=== PATIENT | male | born 1990 | race African-American/Black ===

== ENCOUNTER 2017-01-25 18:50 | Observation (INO) | payer OTHER ==
--- NOTE | 2017-01-25 19:53 | PDOC ---
History of Present Illness - General Chief Complaint: Pain Stated Complaint: PAIN Time Seen by Provider: 01/25/17 19:26 - History of Present Illness Initial Comments: 01/25/17 19:48 26 yo M with h/o nephrolithiasis who presents with R testicular pain. Pt. reports R sided stable, sharp, shooting, testicular pain for the past 2-3 weeks. states that it feels that someone is "flicking" his testicles. Has not noticed any testicular swelling, inguinal bulging w/ cough or sneeze, or skin changes. Denies aggrevators, or alleviators. Denies abdominal or flank pain, dysuria, urethral discharge, hematuria N/V, fevers/chills. Denies h/o STI's. Last sexual partner was female without contraception in 09/22. Pain not alleviated with 500 mg PO Tylenol. Reports h/o renal stones 10 months ago, and told that stones would pass on their own. Past History - Past Medical History Allergies/Adverse Reactions: Allergies Allergy/AdvReac Type Severity Reaction Status Date / Time No Known Allergies Allergy Verified 01/25/17 19:35 Home Medications: Ambulatory Orders Doxycycline Hyclate 100 mg PO BID 10 Days #20 capsule MDD 2 Tab 01/25/17 COPD: No Other medical history: NONE - Immunization History Immunization Up to Date: Yes - Suicide/Smoking/Psychosocial Hx Smoking History: Current every day smoker Have you smoked in the past 12 months: Yes Number of Cigarettes Smoked Daily: 2 If you are a former smoker, when did you quit?: 11/2014 Information on smoking cessation initiated: Yes 'Breaking Loose' booklet given: 01/25/17 Hx Alcohol Use: No Drug/Substance Use Hx: No Substance Use Type: None Review of Systems - Review of Systems Comments:: 01/25/17 19:56 GENERAL/CONSTITUTIONAL: No fever or chills. No weakness. HEAD, EYES, EARS, NOSE AND THROAT: No change in vision. No ear pain or discharge. No sore throat.- CARDIOVASCULAR: No chest pain or shortness of breath RESPIRATORY: No cough, wheezing, or hemoptysis. GASTROINTESTINAL: No nausea, vomiting, diarrhea or constipation. GENITOURINARY: + R testicular pain. No dysuria, frequency, or change in urination. MUSCULOSKELETAL: No joint or muscle swelling or pain. No neck or back pain. SKIN: No rash NEUROLOGIC: No headache, vertigo, loss of consciousness, or change in strength/ sensation. ENDOCRINE: No increased thirst. No abnormal weight change HEMATOLOGIC/LYMPHATIC: No anemia, easy bleeding, or history of blood clots. ALLERGIC/IMMUNOLOGIC: No hives or skin allergy. *Physical Exam - Vital Signs Last Vital Signs Temp Pulse Resp BP Pulse Ox 98.0 F 118 H 20 158/98 97 01/25/17 18:51 01/25/17 18:51 01/25/17 18:51 01/25/17 18:51 01/25/17 18:51 - Physical Exam Comments: 01/25/17 19:56 GENERAL: Awake, alert, and fully oriented, in no acute distress HEAD: No signs of trauma, normocephalic, atraumatic EYES: PERRLA, EOMI, sclera anicteric, conjunctiva clear ENT: hearing grossly normal, nares patent, oropharynx clear without exudates. Moist mucosa NECK: Normal ROM, no JVD, or masses LUNGS: No distress, speaks full sentences, clear to auscultation bilaterally HEART: Regular rate and rhythm, normal S1 and S2, no murmurs, rubs or gallops, peripheral pulses normal and equal bilaterally. ABDOMEN: Soft, nontender, normoactive bowel sounds. No guarding, no rebound. No masses. Neg CVA or suprapubic ttp. : Testicles normal appearence. Non ttp BL. Neg swelling, dilated pampiform plexus, or color/skin changes. BL cremasteric reflex intact. Neg inguinal bulging w/ valsalva, cough. Epididymis non painful and non swollen bilaterally. Neg drainage or discharge from urethral meatus. Neg inguinal lymphadenopathy. Neg penile lesions. EXTREMITIES : Normal inspection, Normal range of motion, no edema. No clubbing or cyanosis. SKIN: Warm, Dry, normal turgor, no rashes or lesions noted. ED Treatment Course - LABORATORY CBC & Chemistry Diagram: 01/25/17 22:45 01/25/17 22:45 Medical Decision Making - Medical Decision Making 01/25/17 20:18 26 yo M with h/o nephrolithiasis who arrives with R sided stable, sharp, shooting, testicular pain for the past 2-3 weeks. Denies testicular swelling, inguinal bulging w/ cough or sneeze, or skin changes, aggrevators, or alleviators. No ssociated abdominal, flank pain, dysuria,urethral discharge, hematuria N/V, fevers/chills. Denies h/o STI's. Last sexual partner was female without contraception in 09/22. Reports h/o renal stones 10 months ago, and told that stones would pass on their own. Physical exam reveals normal appearing testicles, non ttp, with absent swelling, dilated pampiform plexus, or color/skin changes. BL cremasteric reflex intact. Neg inguinal bulging w/ valsalva, cough. Epididymis non painful and non swollen bilaterally. Neg drainage or discharge from urethral meatus. Neg inguinal lymphadenopathy. Neg penile lesions. Patient endorsed h/o renal stones; it is reasonable to consider nephrolithiasis in patient with possible referred testicular pain, although pt. with neg renal colicky findings on PE. Will obtain imaging to r/o testicular torsion despite neg physical exam findings, swelling, ttp, or skin changes. Also consider GC/epididymitis in setting of age and risk factors with sexual history. ED course: GC AMP, UA, CBC, CMP Scrotal U/S 01/25/17 20:20 UA: 1 + Blood, and 32 RBC. Neg nitrite, 2 WBC CTAP: 01/25/17 22:23 Scrotum U/S: Neg evidence of testicular torsion. BL small hydroceles. Mild hyperemia of rt testicle can be see with infection/inflammation. 01/25/17 22:30 IV ceftriaxone 250 mg IVPB / Doxycyline 100 mg PO 01/25/17 22:33 01/25/17 22:36 CT AP: Right sided 6 mm stone at UVJ. Mulitple bilateral nephrolithiasis. Mild R hydroureteronephrosis. Tamsulosin 0.4 mg IV NS 1 L 01/25/17 23:54 CBC: WBC 13.3 Microblog admitting symphony 01/26/17 00:[address] Ruiz 01/26/17 00:[address] Gutierrez. Admit this patient to [facility] inpatient. *DC/Admit/Observation/Transfer Diagnosis at time of Disposition: Renal calculus or stone, Orchitis of right testicle, Obstruction of right ureteropelvic junction (UPJ) due to stone, Hydronephrosis - Discharge Dispostion Condition at time of disposition: Stable Admit: No - Prescriptions Prescriptions: Doxycycline Hyclate 100 mg PO BID 10 Days #20 capsule MDD 2 Tab - Referrals Referrals: Kyler Monroe MD [Staff Physician] - - Patient Instructions Additional Instructions: Please return to the emergency department with any new or worsening signs or symptoms. Please take Doxycycline 2 times per day for 10 days. Avoid alcoholic beverages with the Doxycycline. Please follow up with Urology within the next 72 hours. - Post Discharge Activity - Attestations Physician Attestion: 01/25/17 22:32 I attest to the information provided in this note.
[2017-01-25 20:14] LABS: URINE APPEARANCE CLEAR; URINE BILIRUBIN NEGATIVE (NEGATIVE); URINE BLOOD 1+ (NEGATIVE); URINE COLOR YELLOW; URINE GLUCOSE (UA) NEGATIVE (NEGATIVE); URINE KETONE NEGATIVE (NEGATIVE); URINE NITRITE NEGATIVE (NEGATIVE); URINE PROTEIN NEGATIVE (NEGATIVE); URINE UROBILINOGEN NEGATIVE mg/dL (0.2-1.0)
[2017-01-25 20:41] LABS: URINE BACTERIA RARE /hpf (NONE SEEN); URINE MUCUS RARE; URINE RBC 32; URINE WBC 2
[2017-01-25 22:14] LABS: URINE LEUK ESTERASE Negative (NEGATIVE)
[2017-01-25] MEDS ORDERED: DOXYCYCLINE HYCLATE 100 MG CAPSULE PO ONE ×2 (22:27→22:46)
--- NOTE | 2017-01-25 22:33 | PDOC ---
Attending Attestation - Resident Resident Name: Praneeth Fernandesson - HPI HPI: 01/25/17 22:32 Pt comes with testicle pain. - Physicial Exam PE: 01/25/17 22:32 Agree with resident exam - Medical Decision Making 01/25/17 22:32 Patient Name: FERMIN MCELROY THIS IS A PRELIMINARY REPORT FROM [facility] DATE OF SERVICE: 2017-01-25 20:07:36 IMAGES: [id number] EXAM: TESTICULAR ULTRASOUND AND TESTICULAR DUPLEX EXAM TECHNIQUE: Sagittal and axial images of the scrotum with spectral and color flow doppler analysis INDICATION: Right side testicular pain COMPARISON: None. FINDINGS: TESTES: The testes are relatively symmetric in size and homogeneous, normal in echotexture. The right testis measures 4.7 x 2.6 x 3.0 cm and the left testis measures 4.7 x 2.5 x 2.8 cm. No testicular mass or microcalcification is seen. Arterial and venous doppler flow is maintained to both testes. There may be mild hyperemia on the right. EPIDIDYMI: The epididymii are normal in size and echotexture. Vascular flow appears unremarkable. Right epididymal head cyst =0.17 cm VARICOCELE: There is no visible varicocele. HYDROCELE: There are small bilateral anechoic hydroceles. IMPRESSION: No sonographic findings to suggest testicular torsion. No intratesticular mass. Mild hyperemia right testis can be seen with infection/inflammation. Small bilateral anechoic hydroceles. Patient Name: FERMIN MCELROY THIS IS A PRELIMINARY REPORT FROM [facility] DATE OF SERVICE: 2017-01-25 21:32:03 IMAGES: [id number] EXAM: CT ABDOMEN AND PELVIS HISTORY: Abdominal and scrotal pain COMPARISON: Scrotal ultrasound January 25, 2017 FINDINGS: LUNG BASES: unremarkable The liver, spleen, pancreas, adrenal glands and gallbladder are unremarkable. There are numerous bilateral renal calyceal calculi, the largest appears to be interpolar right kidney measuring 0.8 cm. Mild right hydroureteronephrosis. No significant perinephric edema/stranding. Right UVJ calculus which measures 0.6 cm. No free or focal fluid collection. No free intraperitoneal air. No dilated bowel. The appendix is unremarkable. No aortic aneurysm. Internal fixation right hip. No acute osseous finding. The urinary bladder is unremarkable. IMPRESSION: Bilateral nephrolithiasis. Mild right hydroureteronephrosis. 0.6 cm right UVJ calculus. Pt will be treated for STD with doxycycline 01/25/17 22:36 Pt has normal BUN/CR; however he will be admitted for obstruction at the Right UVJ with a 6mm calculus. Associated with hydronephrosis. 01/25/17 23:55
[2017-01-25] MEDS ORDERED: TAMSULOSIN HCL 0.4 MG CAP.ER.24H (FP) PO ONE (22:36)
[2017-01-25] MEDS ORDERED: SODIUM CHLORIDE 0.9% 1000 ML INFUS.BAG IV ONE (22:36)
[2017-01-25] MEDS ORDERED: cefTRIAXone SODIUM 1 GM VIAL ONE (22:46)
[2017-01-25] MEDS ORDERED: TAMSULOSIN HCL 0.4 MG CAP.ER.24H (FP) ONE (22:46)
[2017-01-25 23:01] LABS: BASOPHIL 0.7 % (0-2.0); EOSINOPHIL 2.6 % (0-4.5); MCH 26.6 pg (25.7-33.7); MCHC 33.2 g/dl (32.0-35.9); MEAN CELL VOLUME 80.2 fl (80-96); MEAN PLT VOLUME 8.2 fl (7.5-11.1); NEUTROPHILS 65.6 % (42.8-82.8); PLATELET COUNT 285 K/MM3 (134-434); RDW 13.8 % (11.9-15.9); WHITE BLOOD COUNT 13.3 K/mm3 (4.0-10.0)
[2017-01-25 23:24] LABS: ALBUMIN 4.5 g/dl (3.4-5.0); ALK PHOS 72 U/L (45-117); ANION GAP 6 (8-16); BILIRUBIN,TOTAL 0.4 mg/dL (0.2-1.0); CALCIUM 9.2 mg/dL (8.5-10.1); CO2 30 mmol/L (21-32); CREATININE 1.2 mg/dL (0.7-1.3); GLUCOSE,RANDOM 98 mg/dL (74-106); SGOT/AST 20 U/L (15-37); SGPT/ALT 63 U/L (12-78); TOT PROT 8.4 g/dl (6.4-8.2)
--- NOTE | 2017-01-25 23:55 | PDOC ---
History of Present Illness - General Chief Complaint: Pain Stated Complaint: PAIN Time Seen by Provider: 01/25/17 19:26 Past History - Past Medical History Allergies/Adverse Reactions: Allergies Allergy/AdvReac Type Severity Reaction Status Date / Time No Known Allergies Allergy Verified 01/25/17 19:35 Home Medications: Ambulatory Orders Doxycycline Hyclate 100 mg PO BID 10 Days #20 capsule MDD 2 Tab 01/25/17 COPD: No Other medical history: NONE - Immunization History Immunization Up to Date: Yes - Suicide/Smoking/Psychosocial Hx Smoking History: Current every day smoker Have you smoked in the past 12 months: Yes Number of Cigarettes Smoked Daily: 2 If you are a former smoker, when did you quit?: 11/2014 Information on smoking cessation initiated: Yes 'Breaking Loose' booklet given: 01/25/17 Hx Alcohol Use: No Drug/Substance Use Hx: No Substance Use Type: None *Physical Exam - Vital Signs Last Vital Signs Temp Pulse Resp BP Pulse Ox 98.0 F 118 H 20 158/98 97 01/25/17 18:51 01/25/17 18:51 01/25/17 18:51 01/25/17 18:51 01/25/17 18:51 ED Treatment Course - LABORATORY CBC & Chemistry Diagram: 01/25/17 22:45 01/25/17 22:45 - ADDITIONAL ORDERS Additional order review: Laboratory Results 01/25/17 01/25/17 22:45 20:06 Sodium 140 Potassium 4.7 Chloride 104 Carbon Dioxide 30 Anion Gap 6 L BUN 13 Creatinine 1.2 Creat Clearance w eGFR > 60 Random Glucose 98 Calcium 9.2 Total Bilirubin 0.4 AST 20 D ALT 63 D Alkaline Phosphatase 72 Total Protein 8.4 H Albumin 4.5 Urine Color Yellow Urine Appearance Clear Urine pH 5.0 Ur Specific [place] 1.021 Urine Protein Negative Urine Glucose (UA) Negative Urine Ketones Negative Urine Blood 1+ H Urine Nitrite Negative Urine Bilirubin Negative Urine Urobilinogen Negative Ur Leukocyte Esterase Negative Urine WBC (Auto) 2 Urine RBC (Auto) 32 Urine Bacteria Rare Urine Mucus Rare 01/25/17 22:45 RBC 5.85 H MCV 80.2 MCHC 33.2 RDW 13.8 MPV 8.2 Neutrophils % 65.6 Lymphocytes % 23.3 Monocytes % 7.8 Eosinophils % 2.6 Basophils % 0.7 - Medications Given in the ED: ED Medications Discontinued Medications Generic Name Dose Route Start Last Admin Trade Name Caprice PRN Reason Stop Dose Admin Ceftriaxone Sodium 250 mg 01/25/17 22:27 01/25/17 23:20 Rocephin - IM 01/25/17 22:28 250 mg ONCE ONE Administration Doxycycline Hyclate 100 mg 01/25/17 22:27 01/25/17 23:02 Vibramycin - PO 01/25/17 22:28 100 mg ONCE ONE Administration Sodium Chloride 1,000 ml 01/25/17 22:36 01/25/17 23:02 Normal Saline - IV 01/25/17 22:37 1,000 ml ONCE ONE Administration Tamsulosin HCl 0.4 mg 01/25/17 22:36 01/25/17 23:02 Flomax - PO 01/25/17 22:37 0.4 mg ONCE ONE Administration *DC/Admit/Observation/Transfer Diagnosis at time of Disposition: Renal calculus or stone, Orchitis of right testicle, Obstruction of right ureteropelvic junction (UPJ) due to stone, Hydronephrosis - Discharge Dispostion Condition at time of disposition: Guarded - Prescriptions Prescriptions: Doxycycline Hyclate 100 mg PO BID 10 Days #20 capsule MDD 2 Tab - Referrals Referrals: Kyler Monroe MD [Staff Physician] - - Patient Instructions Additional Instructions: Please return to the emergency department with any new or worsening signs or symptoms. Please take Doxycycline 2 times per day for 10 days. Avoid alcoholic beverages with the Doxycycline. Please follow up with Urology within the next 72 hours. - Post Discharge Activity
[2017-01-26] MEDS ORDERED: ACETAMINOPHEN 325 MG TABLET (FP) PO ONE ×2 (01:22→03:44)
[2017-01-26] MEDS ORDERED: KETOROLAC TROMETHAMINE 30 MG/1 ML VIAL IVPUSH PRN (01:25)
--- NOTE | 2017-01-26 02:04 | HP ---
CHIEF COMPLAINT: testicular pain PCP: none HISTORY OF PRESENT ILLNESS: This is a 26 year old male with a past medical history of renal stones who presented to the ED with a c/o testicular, particularly the right x 2-3 weeks. He also reports bilat groin pain. He denies N/V/D, penile discharge or dysuria. Pt reports last sexual encounter unprotected in September. ER course was notable for: (1) WBC 13.3 (2) CT with 6mm stone R UVJ Recent Travel: pt denies PAST MEDICAL HISTORY: renal stones, diagnosed 06/2015 Social History: Smokin cig/day Alcohol: pt denies Drugs: marijuana Family History: mother age 55, [place], PMH HTN, arthritis father alive and well 2 brothers, 1 sister, no medical problems no children Allergies No Known Allergies Allergy (Verified 01/25/17 19:35) HOME MEDICATIONS: none REVIEW OF SYSTEMS CONSTITUTIONAL: Absent: fever, chills, diaphoresis, generalized weakness, malaise, loss of appetite, weight change HEENT: Absent: rhinorrhea, nasal congestion, throat pain, throat swelling, difficulty swallowing, mouth swelling, ear pain, eye pain, visual changes CARDIOVASCULAR: Absent: chest pain, syncope, palpitations, irregular heart rate, lightheadedness , peripheral edema RESPIRATORY: Absent: cough, shortness of breath, dyspnea with exertion, orthopnea, wheezing, stridor, hemoptysis GASTROINTESTINAL: Absent: abdominal pain, abdominal distension, nausea, vomiting, diarrhea, constipation, melena, hematochezia GENITOURINARY: Present: right testicular pain, B/L groin pain Absent: dysuria, frequency, urgency, hesitancy, hematuria, flank pain MUSCULOSKELETAL: Absent: myalgia, arthralgia, joint swelling, back pain, neck pain SKIN: Absent: rash, itching, pallor HEMATOLOGIC/IMMUNOLOGIC: Absent: easy bleeding, easy bruising, lymphadenopathy, frequent infections ENDOCRINE: Absent: unexplained weight gain, unexplained weight loss, heat intolerance, cold intolerance NEUROLOGIC: Absent: headache, focal weakness or paresthesias, dizziness, unsteady gait, seizure, mental status changes, bladder or bowel incontinence PSYCHIATRIC: Absent: anxiety, depression, suicidal or homicidal ideation, hallucinations. PHYSICAL EXAMINATION Vital Signs - 24 hr 3 01/25/17 18:51 Temperature 98.0 F Pulse Rate 118 H Respiratory 20 Rate Blood Pressure 158/98 O2 Sat by Pulse 97 Oximetry (%) GENERAL: Awake, alert, and fully oriented, in no acute distress. HEAD: Normal with no signs of trauma. EYES: Pupils equal, round and reactive to light, extraocular movements intact, sclera anicteric, conjunctiva clear. No lid lag. EARS, NOSE, THROAT: Ears normal, nares patent, oropharynx clear without exudates. Moist mucous membranes. NECK: Normal range of motion, supple without lymphadenopathy, JVD, or masses. LUNGS: Breath sounds equal, clear to auscultation bilaterally. No wheezes, and no crackles. No accessory muscle use. HEART: Regular rate and rhythm, normal S1 and S2 without murmur, rub or gallop. ABDOMEN: Soft, nontender, not distended, normoactive bowel sounds, no guarding, no rebound, no masses. No hepatomegaly or splenomegaly. MUSCULOSKELETAL: Normal range of motion at all joints. No bony deformities or tenderness. No CVA tenderness. UPPER EXTREMITIES: 2+ pulses, warm, well-perfused. No cyanosis. No clubbing. No peripheral edema. LOWER EXTREMITIES: 2+ pulses, warm, well-perfused. No calf tenderness. No peripheral edema. NEUROLOGICAL: Cranial nerves II-XII intact. Normal speech. Normal gait. PSYCHIATRIC: Cooperative. Good eye contact. Appropriate mood and affect. SKIN: Warm, dry, normal turgor, no rashes or lesions noted, normal capillary refill. Laboratory Results - last 24 hr 3 01/25/17 01/25/17 01/25/17 20:06 22:45 22:45 WBC 13.3 H RBC 5.85 H Hgb 15.5 Hct 46.9 MCV 80.2 MCH 26.6 MCHC 33.2 RDW 13.8 Plt Count 285 MPV 8.2 Neutrophils % 65.6 Lymphocytes % 23.3 Monocytes % 7.8 Eosinophils % 2.6 Basophils % 0.7 Sodium 140 Potassium 4.7 Chloride 104 Carbon Dioxide 30 Anion Gap 6 L BUN 13 Creatinine 1.2 Creat Clearance w eGFR > 60 Random Glucose 98 Calcium 9.2 Total Bilirubin 0.4 AST 20 D ALT 63 D Alkaline Phosphatase 72 Total Protein 8.4 H Albumin 4.5 Urine Color Yellow Urine Appearance Clear Urine pH 5.0 Ur Specific [place] 1.021 Urine Protein Negative Urine Glucose (UA) Negative Urine Ketones Negative Urine Blood 1+ H Urine Nitrite Negative Urine Bilirubin Negative Urine Urobilinogen Negative Ur Leukocyte Esterase Negative Urine WBC (Auto) 2 Urine RBC (Auto) 32 Urine Bacteria Rare Urine Mucus Rare Radiology Reports: Scrotal US Impression: No sonographic findings to suggest testicular torsion. No intratesticular mass. Mild hyperemia right testis can be seen with infection/inflammation. Small bilateral anechoic hydroceles. CT abd/pel without contrast IMPRESSION: Bilateral nephrolithiasis. Mild right hydroureteronephrosis. 0.6 cm right UVJ calculus. ECG NSR with sinus arrhythmia, vent rate 76, QTC [address]/T changes ASSESSMENT/PLAN: 26yM with PMH kidney stones presented to the ED with right testicular pain. CT revealed 0.6cm R UVJ calculus. Renal stone - 0.6cm at UVJ likely will pass on its own - pain controlled at present, monitor for pain, toradol ordered PRN - strain all urine - ED ordered urology consult. possible orchitis - unlikely given only finding on US is hyperemia, await final read - given age and unprotected sex will treat for GC/chlamydia, already given ceftriaxone 250IM, cont doxycycline. Pt declined HIV testing DVT PPX - chemoprophylaxis not indicated FEN - NS @ 100cc/hr - BMP in am - regular diet as tolerated Dispo: Pt currently requires inpatient care for management of his emergent condition but expected LOS is less than 2 MN. Visit type - Emergency Visit Emergency Visit: Yes ED Registration Date: 01/26/17 Care time: The patient presented to the Emergency Department on the above date and was hospitalized for further evaluation of their emergent condition. - New Patient This patient is new to me today: Yes Date on this admission: 01/26/17 - Critical Care Critical Care patient: No
[2017-01-26] MEDS: SODIUM CHLORIDE 1,000 ML IV SCH ×2 (02:33→09:48)
[2017-01-26] MEDS ORDERED: ACETAMINOPHEN 325 MG TABLET (FP) ONE (02:34)
[2017-01-26 03:26] VITALS: BMI 32.8
[2017-01-26 08:00] LABS: EOSINOPHIL 3.5 % (0-4.5); MCH 26.7 pg (25.7-33.7); MCHC 33.2 g/dl (32.0-35.9); MEAN CELL VOLUME 80.5 fl (80-96); MEAN PLT VOLUME 8.2 fl (7.5-11.1); NEUTROPHILS 56.5 % (42.8-82.8); PLATELET COUNT 257 K/MM3 (134-434); WHITE BLOOD COUNT 10.7 K/mm3 (4.0-10.0)
[2017-01-26 08:41] LABS: ANION GAP 9 (8-16); CALCIUM 8.5 mg/dL (8.5-10.1); CO2 24 mmol/L (21-32); GLUCOSE,RANDOM 87 mg/dL (74-106)
[2017-01-26 08:42] LABS: CREATININE 0.9 mg/dL (0.7-1.3)
[2017-01-26] MEDS: DOXYCYCLINE HYCLATE 100 MG CAPSULE PO SCH ×2 (09:48→17:29)
--- NOTE | 2017-01-26 13:42 | DS ---
Physical Exam: SUBJECTIVE: Patient seen and examined OBJECTIVE: Vital Signs Period Temp Pulse Resp BP Sys/Early Pulse Ox Last 24 Hr 97.7 F-98.0 F 72-118 20-20 144-158/77-98 97-99 PHYSICAL EXAM GENERAL: The patient is awake, alert, and fully oriented, in no acute distress. HEAD: Normal with no signs of trauma. EYES: PERRL, extraocular movements intact, sclera anicteric, conjunctiva clear. ENT: Ears normal, nares patent, oropharynx clear without exudates, moist mucous membranes. NECK: Trachea midline, full range of motion, supple. LUNGS: Breath sounds equal, clear to auscultation bilaterally, no wheezes, no crackles, no accessory muscle use. HEART: Regular rate and rhythm, S1, S2 without murmur, rub or gallop. ABDOMEN: Soft, nontender, nondistended, normoactive bowel sounds, no guarding, no rebound, no hepatosplenomegaly, no masses. EXTREMITIES: 2+ pulses, warm, well-perfused, no edema. NEUROLOGICAL: Cranial nerves II through XII grossly intact. Normal speech, gait not observed. PSYCH: Normal mood, normal affect. SKIN: Warm, dry, normal turgor, no rashes or lesions noted. LABS Laboratory Results - last 24 hr 01/25/17 01/25/17 01/25/17 20:06 22:45 22:45 WBC 13.3 H RBC 5.85 H Hgb 15.5 Hct 46.9 MCV 80.2 MCH 26.6 MCHC 33.2 RDW 13.8 Plt Count 285 MPV 8.2 Neutrophils % 65.6 Lymphocytes % 23.3 Monocytes % 7.8 Eosinophils % 2.6 Basophils % 0.7 Sodium 140 Potassium 4.7 Chloride 104 Carbon Dioxide 30 Anion Gap 6 L BUN 13 Creatinine 1.2 Creat Clearance w eGFR > 60 Random Glucose 98 Calcium 9.2 Total Bilirubin 0.4 AST 20 D ALT 63 D Alkaline Phosphatase 72 Total Protein 8.4 H Albumin 4.5 Urine Color Yellow Urine Appearance Clear Urine pH 5.0 Ur Specific [place] 1.021 Urine Protein Negative Urine Glucose (UA) Negative Urine Ketones Negative Urine Blood 1+ H Urine Nitrite Negative Urine Bilirubin Negative Urine Urobilinogen Negative Ur Leukocyte Esterase Negative Urine WBC (Auto) 2 Urine RBC (Auto) 32 Urine Bacteria Rare Urine Mucus Rare 01/26/17 01/26/17 07:30 07:30 WBC 10.7 H RBC 5.71 H Hgb 15.3 Hct 45.9 MCV 80.5 MCH 26.7 MCHC 33.2 RDW 14.0 Plt Count 257 MPV 8.2 Neutrophils % 56.5 Lymphocytes % 30.7 D Monocytes % 8.3 Eosinophils % 3.5 Basophils % 1.0 Sodium 139 Potassium 4.1 Chloride 106 Carbon Dioxide 24 Anion Gap 9 BUN 10 D Creatinine 0.9 D Creat Clearance w eGFR Random Glucose 87 Calcium 8.5 Total Bilirubin AST ALT Alkaline Phosphatase Total Protein Albumin Urine Color Urine Appearance Urine pH Ur Specific [place] Urine Protein Urine Glucose (UA) Urine Ketones Urine Blood Urine Nitrite Urine Bilirubin Urine Urobilinogen Ur Leukocyte Esterase Urine WBC (Auto) Urine RBC (Auto) Urine Bacteria Urine Mucus HOSPITAL COURSE: Date of Admission:01/26/17 Date of Discharge: 01/26/17 Discharge Summary Reason For Visit: CALCULUS OF KIDNEY, ORTHITIS OF RIGHT Current Active Problems Hydronephrosis (Acute) Obstruction of right ureteropelvic junction (UPJ) due to stone (Acute) Orchitis of right testicle (Acute) Renal calculus (Acute) Condition: Guarded - Instructions Diet, Activity, Other Instructions: You are being discharged with a strainer and a sterile cup to use when you urinate. Urinate through the strainer. If you see any stone or debris, put it in the sterile cup. Bring any collected material with you to your appointment next week with Dr. Monroe. Dr. Monroe will see you on . His office will call you to give you the time of your appointment. Dr. Monroe's contact information is enclosed in this discharge packet. Drink PLENTY OF FLUIDS. Take Tylenol for pain as needed. Do not exceed 4,000mg of Tylenol in any 24-hour period. Return to the emergency department for any new or worsening symptoms. Referrals: Kyler Monroe MD [Staff Physician] - 02/03/17 - Home Medications Comprehensive Discharge Medication List: Ambulatory Orders Doxycycline Hyclate 100 mg PO BID 10 Days #20 capsule MDD 2 Tab 01/25/17
[2017-01-26 13:58] VITALS: BP 163/100; PULSE 76; TEMP 98
--- NOTE | 2017-01-26 14:00 | EKG ---
Test Reason : Blood Pressure : / mmHG Vent. Rate : 076 BPM Atrial Rate : 076 BPM P-R Int : 150 ms QRS Dur : 086 ms QT Int : 356 ms P-R-T Axes : 062 047 033 degrees QTc Int : 400 ms NORMAL SINUS RHYTHM WITH SINUS ARRHYTHMIA WHEN COMPARED WITH ECG OF 29-JAN-2016 23:58, VENT. RATE HAS DECREASED BY 44 BPM Confirmed by RAHUL RENE MD ([id number]) on 01/26/2017 2:00:04 PM Referred By: Confirmed By:RAHUL RENE MD
--- NOTE | 2017-01-26 15:55 | CONSULT ---
Consult - text type - Consultation Consultation Note: cc: right renal colic hpi: patient with one week history of increasing right sided colic due to a distal 6 mm stone. The patient has additional upper tract stones. The patient denies fever or chills. The patient describes severe [place] and vomiting. Patient currently feels better but has not passed the distal stone pe vss; afeb 4/[address] scan and labs reviewed imp right hydro with distal right ureteral stone with multiple upper tract stones plan d/c home and will follow-up as outpatient discussed x 25 minutes
== END 2017-01-26 18:59 | disposition home or self-care (01) ==
LOC: JER 18:50 → JERBED 01-26 00:04 → J6S 01-26 03:14
PROVIDERS: ADMIT Internal Medicine; ATTEND Nurse Practitioner Acute Care
PROC: 3E0333Z Introduction of Anti-inflammatory into Peripheral Vein, Percutaneous Approach (ICD-10-PCS; principal; 2017-01-26)
PROC: 3E02329 Introduction of Other Anti-infective into Muscle, Percutaneous Approach (ICD-10-PCS; 2017-01-26)
PROC: 3E0337Z Introduction of Electrolytic and Water Balance Substance into Peripheral Vein, Percutaneous Approach (ICD-10-PCS; 2017-01-26)
DX: N45.2 Orchitis (principal); N13.0 Hydronephrosis with ureteropelvic junction obstruction; N20.0 Calculus of kidney; A64 Unspecified sexually transmitted disease
CPT/HCPCS: 36415; 74176-TC; 76870-TC; 80048; 80053; 81003; 81015; 85025; 87491; 87591; 93005; 93010; 96372; 96374; 99283-25; G0378

== ENCOUNTER 2017-04-02 15:29 | Emergency (ER) | payer OTHER ==
--- NOTE | 2017-04-02 15:36 | PDOC ---
Rapid Medical Evaluation Time Seen by Provider: 04/02/17 15:30 Medical Evaluation: Allergies Allergy/AdvReac Type Severity Reaction Status Date / Time No Known Allergies Allergy Verified 01/25/17 19:35 04/02/17 15:31 The patient presents with a chief complaint of: Feeling a pinching sensation when he pees, hx of kidney stones. Admits to frequency. Had some back pain/ flank pain this morning. Minimal now. Describes it as a twinge I have performed a brief in-person evaluation of this patient; Pertinent physical exam findings: Tachycardic 120's. I have ordered the following: CBC, CMP, PT/INR, UA The patient will proceed to the ED for further evaluation.
[2017-04-02 15:38] VITALS: BP 145/90; PULSE 118; TEMP 98.7; BMI 33.3
[2017-04-02 16:08] LABS: EOS % 2.9 % (0-4.5); HEMATOCRIT 46.1 % (35.4-49); HEMOGLOBIN 15.5 GM/dL (11.7-16.9); LYMPH % 24.6 % (8-40); MCHC 33.6 g/dl (32.0-35.9); MEAN CELL VOLUME 80.6 fl (80-96); MEAN PLT VOLUME 8.5 fl (7.5-11.1); MONO % 9.1 % (3.8-10.2); NEUT % 62.4 % (42.8-82.8); PLATELET COUNT 312 K/MM3 (134-434); RBC 5.73 M/mm3 (4.00-5.60); WHITE BLOOD COUNT 9.9 K/mm3 (4.0-10.0)
[2017-04-02 16:29] LABS: INR 0.98 (0.82-1.09); PROTHROMBIN TIME (PATIENT) 11.1 SEC (9.98-11.88)
[2017-04-02 16:37] LABS: ALBUMIN 4.6 g/dl (3.4-5.0); ALK PHOS 87 U/L (45-117); ANION GAP 7 (8-16); BILIRUBIN,TOTAL 0.3 mg/dL (0.2-1.0); BLOOD UREA NITROGEN 9 mg/dL (7-18); CALCIUM 8.8 mg/dL (8.5-10.1); CHLORIDE 103 mmol/L (98-107); CO2 29 mmol/L (21-32); CREATININE 1.1 mg/dL (0.7-1.3); GLUCOSE,RANDOM 90 mg/dL (74-106); POTASSIUM 4.6 mmol/L (3.5-5.1); SGOT/AST 18 U/L (15-37); SGPT/ALT 46 U/L (12-78); SODIUM 139 mmol/L (136-145); TOT PROT 8.4 g/dl (6.4-8.2)
[2017-04-02] MEDS ORDERED: KETOROLAC TROMETHAMINE 60 MG/2 ML VIAL IM ONE (16:38)
[2017-04-02] MEDS ORDERED: KETOROLAC TROMETHAMINE 60 MG/2 ML VIAL ONE (16:45)
[2017-04-02 16:56] LABS: URINE APPEARANCE CLEAR; URINE BILIRUBIN NEGATIVE (NEGATIVE); URINE BLOOD NEGATIVE (NEGATIVE); URINE COLOR LTYELLOW; URINE GLUCOSE (UA) NEGATIVE (NEGATIVE); URINE KETONE NEGATIVE (NEGATIVE); URINE LEUK ESTERASE NEGATIVE (NEGATIVE); URINE NITRITE NEGATIVE (NEGATIVE); URINE PROTEIN NEGATIVE (NEGATIVE); URINE UROBILINOGEN NEGATIVE mg/dL (0.2-1.0)
--- NOTE | 2017-04-02 17:28 | PDOC ---
History of Present Illness - General Chief Complaint: Pain, Acute Stated Complaint: POSSIBLE KIDNEY STONES Time Seen by Provider: 04/02/17 15:30 History Source: Patient Exam Limitations: No Limitations - History of Present Illness Travel History: No Initial Comments: 04/02/17 17:14 26 yr male with complaint of burning on urination and urgency and frequency to urinate for 2-3 weeks. denies abd pain , neg flank pain. no fever no penile discharge. pt has history of kidney stones. 04/02/17 17:30 Past History - Past Medical History Allergies/Adverse Reactions: Allergies Allergy/AdvReac Type Severity Reaction Status Date / Time No Known Allergies Allergy Verified 01/25/17 19:35 Home Medications: Ambulatory Orders Azithromycin 2,000 mg PO ONCE #4 tablet 04/02/17 Doxycycline Hyclate [Vibramycin] 100 mg PO BID #20 capsule 04/02/17 COPD: No DVT: No Kidney Stones: Yes - Immunization History Immunization Up to Date: Yes - Suicide/Smoking/Psychosocial Hx Smoking History: Current every day smoker Have you smoked in the past 12 months: Yes Number of Cigarettes Smoked Daily: 2 If you are a former smoker, when did you quit?: 11/2014 Information on smoking cessation initiated: No 'Breaking Loose' booklet given: 01/25/17 Hx Alcohol Use: No Drug/Substance Use Hx: Yes (Marijuana) Substance Use Type: None Hx Substance Use Treatment: No Abd/GI Specific PMHX - Complaint Specific PMHX Colitis: No Diverticulitis: No Gall Bladder Disease: No GERD: No Hepatitis: No Irritable Bowel Synd (IBS): No Pancreatitis: No GI Ulcer Disease: No Review of Systems - Review of Systems Able to Perform ROS?: Yes Is the patient limited Italian proficient: No Constitutional: No: Symptoms Reported, Unexplained wgt Loss HEENTM: No: Symptoms Reported Respiratory: No: Symptoms reported Cardiac (ROS): No: Symptoms Reported ABD/GI: No: Symptoms Reported : Yes: Symptoms Reported *Physical Exam - Vital Signs Last Vital Signs Temp Pulse Resp BP Pulse Ox 98.7 F 118 H 16 145/90 100 04/02/17 15:33 04/02/17 15:33 04/02/17 15:33 04/02/17 15:33 04/02/17 15:33 - Physical Exam General Appearance: Yes: Nourished HEENT: positive: EOMI, JUSTYNA, TMs Normal, Pharynx Normal Neck: positive: Supple. negative: Tender Respiratory/Chest: positive: Lungs Clear, Normal Breath Sounds Cardiovascular: positive: Regular Rhythm, Regular Rate Male Genitalia: positive: normal genitalia. negative: normal prostate, discharge, testicular tenderness, testicular mass, inguinal hernia, hernia, CVAT , hematuria Musculoskeletal: positive: Normal Inspection. negative: CVA Tenderness, CVA Tenderness (R), CVA Tenderness (L) Extremity: positive: Normal Capillary Refill, Normal Inspection, Normal Range of Motion Integumentary: positive: Normal Color, Dry, Warm Neurologic: positive: Fully Oriented, Alert, Normal Mood/Affect, Normal Response , Motor Strength 07/11 ED Treatment Course - LABORATORY CBC & Chemistry Diagram: 04/02/17 15:45 04/02/17 15:45 - ADDITIONAL ORDERS Additional order review: Laboratory Results 04/02/17 04/02/17 04/02/17 15:45 15:45 15:36 PT with INR 11.10 INR 0.98 Sodium 139 Potassium 4.6 Chloride 103 Carbon Dioxide 29 D Anion Gap 7 L BUN 9 Creatinine 1.1 D Creat Clearance w eGFR > 60 Random Glucose 90 Calcium 8.8 Total Bilirubin 0.3 D AST 18 ALT 46 D Alkaline Phosphatase 87 D Total Protein 8.4 H Albumin 4.6 Urine Color Ltyellow Urine Appearance Clear Urine pH 6.0 Ur Specific [place] 1.013 Urine Protein Negative Urine Glucose (UA) Negative Urine Ketones Negative Urine Blood Negative Urine Nitrite Negative Urine Bilirubin Negative Urine Urobilinogen Negative Ur Leukocyte Esterase Negative 04/02/17 15:45 RBC 5.73 H MCV 80.6 MCHC 33.6 RDW 14.0 MPV 8.5 Neutrophils % 62.4 Lymphocytes % 24.6 Monocytes % 9.1 Eosinophils % 2.9 Basophils % 1.0 - Medications Given in the ED: ED Medications Discontinued Medications Generic Name Dose Route Start Last Admin Trade Name Freq PRN Reason Stop Dose Admin Ketorolac Tromethamine 60 mg 04/02/17 16:38 04/02/17 16:50 Toradol Injection - IM 04/02/17 16:39 60 mg ONCE ONE Administration Medical Decision Making - Medical Decision Making 04/02/17 17:14 04/02/17 17:10 cc: urinary urgency frequency and burning denies penile discharge pt denies testical pain or swelling, denies vomiting or flank pain pt has history of kidney stones took tylenol for pain will r/o STD UTI, kidney stones pt is comfortable no acute distress. toradol for pain 04/02/17 17:11 04/02/17 18:08 dc inst given i am treating for possible STD urine is negative for blood , less likely renal colic however pt is to follow with the urologist as discussed. pt agrees with the plan of care. *DC/Admit/Observation/Transfer Diagnosis at time of Disposition: Urinary urgency - Discharge Dispostion Disposition: HOME Condition at time of disposition: Good - Prescriptions Prescriptions: Azithromycin 2,000 mg PO ONCE #4 tablet Doxycycline Hyclate [Vibramycin] 100 mg PO BID #20 capsule - Referrals Referrals: Marvin Garcia MD [Staff Physician] - - Patient Instructions Additional Instructions: drink pleanty of fluids water is best take the medications as directed always use condoms to protect yourself from any STD's we will call you with any POSITIVE cultures but you can leave a message on and someone will call you back follow with the urologist , this is important to rule out any other causes of your symptoms and especially if your symptoms continue Return if worse - Post Discharge Activity
== END 2017-04-02 18:21 | disposition home or self-care (01) ==
LOC: JERFT 15:29
PROC: 3E0233Z Introduction of Anti-inflammatory into Muscle, Percutaneous Approach (ICD-10-PCS; principal; 2017-04-02)
DX: R39.15 Urgency of urination (principal); Z87.442 Personal history of urinary calculi; F17.210 Nicotine dependence, cigarettes, uncomplicated
CPT/HCPCS: 36415; 80053; 81003; 85025; 85610; 87491; 87591; 99282-25

== ENCOUNTER 2017-09-12 14:21 | Emergency (ER) | payer OTHER ==
[2017-09-12 14:29] VITALS: BP 146/85; PULSE 84; TEMP 99.3; BMI 33.3
--- NOTE | 2017-09-12 14:32 | PDOC ---
Attending Attestation - HPI HPI: 09/12/17 18:24 The patient is a 26-year-old male with a past medical history of Kidney stones presents to the emergency department complaining of blood in the urine. 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 scrotal pain. The patient reports a side to side radiating abdominal pain and a constant scrotal pain for the past 4 days, aggravated by marijuana use, without relief. Denies dysuria, frequency or urgency to urinate. Denies back pain. Denies fever , chills, cough or a headache. Denies nausea or vomiting. Denies chest pain or shortness of breath. Denies vertigo or dizziness. Denies diarrhea or constipation. Allergies: NKA Social history: Patient reports the daily history of smoking. Reports the use of marijuana. Denies the use of alcohol. Surgical history: None reported. PCP: None reported. - Physicial Exam PE: 09/12/17 17:34 GENERAL: Awake, alert, and fully oriented, in no acute distress HEAD: No signs of trauma EYES: PERRLA, EOMI, sclera anicteric, conjunctiva clear ENT: Auricles normal inspection, hearing grossly normal, nares patent, oropharynx clear without exudates. Moist mucosa NECK: Normal ROM, supple, no lymphadenopathy, JVD, or masses LUNGS: Breath sounds equal, clear to auscultation bilaterally. No wheezes, and no crackles HEART: Regular rate and rhythm, normal S1 and S2, no murmurs, rubs or gallops ABDOMEN: (+) No CVA tenderness. Soft, nontender, normoactive bowel sounds. No guarding, no rebound. No masses Testicular exam: (+) circumsized. No scrotal tenderness, rash, lesion. No ulceration to the penis . No lumps or bumps. EXTREMITIES: no edema to the legs. Normal range of motion, no edema. No clubbing or cyanosis. No cords, erythema, or tenderness NEUROLOGICAL: Cranial nerves II through XII grossly intact. Normal speech, normal gait SKIN: Warm, Dry, normal turgor, no rashes or lesions noted. - Medical Decision Making 09/12/17 17:34 Documentation prepared by Yomaira Dewitt, acting as emergency medical services coordinator for Malia Wong DO. <Yomaira Dewitt - Last Filed: 09/12/17 18:24> - Resident Resident Name: Adolfo Quiroz - ED Attending Attestation I have performed the following: I have examined & evaluated the patient, The case was reviewed & discussed with the resident, I agree w/resident's findings & plan, Exceptions are as noted - Medical Decision Making 09/12/17 14:32 I, Dr. Malia Wong, DO, attest that this document has been prepared under my direction and personally reviewed by me in its entirety. I further attest, that it accurately reflects all work, treatment, procedures and medical decision -making performed by me. 09/12/17 15:48 a/p: 26yo male with intermittent R flank pain -concern for renal colic -normal testicular exam -hx of renal colic and doesn't follow with a urologist -will order labs, ua, ucx -will need ultrasound -will give ivf hydration and toradol -will monitor and reassess 09/12/17 17:43 mildly elevated wbc pending cr +blood in urine ct pending 09/12/17 17:54 renal ultrasound + mild R hydro scrotal ultrasound normal flow b/l testes 09/12/17 18:10 ct shows 2 stones 4mm and 4.5mm in prox and mid R ureter with hydro call placed to DR. Means 09/12/17 18:26 pt feeling better discussed labs and imaging discussed follow up with Dr. Means on Thursday/Thursday. Answered all questions. stable for d/c to home <Malia Wong - Last Filed: 09/12/17 18:37> Discharge Disposition - Discharge Dispostion Last Admission D/C Date: 04/15/05 Decision to Admit order: No <Malia Wong - Last Filed: 09/12/17 18:37> - Diagnosis Painful urination, Renal colic, Hydronephrosis, Hematuria - Discharge Dispostion Disposition: HOME Condition at time of disposition: Stable - Prescriptions Prescriptions: Ibuprofen [Motrin -] 600 mg PO TID PRN #21 tablet PRN Reason: Pain Tamsulosin HCl [Flomax] 0.4 mg PO DAILY #14 cap.er.24h - Referrals Referrals: Jagdish Means MD [Staff Physician] - - Patient Instructions Printed Discharge Instructions: Kidney Stones -- Adult Additional Instructions: Please call the urologist Thursday morning to arrange for an office visit. Please urinate through the strainer. Please take all medications as prescribed. Please return to the ED with any further concerns or complaints.
[2017-09-12] MEDS ORDERED: KETOROLAC TROMETHAMINE 30 MG/1 ML VIAL IM ONE (15:20)
[2017-09-12] MEDS ORDERED: SODIUM CHLORIDE 1,000 ML IV STA (15:21)
[2017-09-12] MEDS ORDERED: KETOROLAC TROMETHAMINE 30 MG/1 ML VIAL ONE (15:22)
[2017-09-12] MEDS ORDERED: TAMSULOSIN HCL 0.4 MG CAP.ER.24H (FP) PO ONE (15:22)
[2017-09-12] MEDS ORDERED: TAMSULOSIN HCL 0.4 MG CAP.ER.24H (FP) ONE (15:23)
[2017-09-12 16:01] LABS: BASO % 0.7 % (0-2.0); EOS % 2.9 % (0-4.5); HEMATOCRIT 45.1 % (35.4-49); HEMOGLOBIN 14.9 GM/dL (11.7-16.9); LYMPH % 20.5 % (8-40); MEAN CELL VOLUME 81.7 fl (80-96); MEAN PLT VOLUME 8.8 fl (7.5-11.1); MONO % 6.8 % (3.8-10.2); NEUT % 69.1 % (42.8-82.8); PLATELET COUNT 271 K/MM3 (134-434); RBC 5.52 M/mm3 (4.00-5.60); RDW 14.1 % (11.9-15.9); WHITE BLOOD COUNT 10.7 K/mm3 (4.0-10.0)
--- NOTE | 2017-09-12 17:23 | PDOC ---
History of Present Illness - General Chief Complaint: Pain Stated Complaint: PENILE BLEEDING Time Seen by Provider: 09/12/17 14:30 History Source: Patient Exam Limitations: No Limitations - History of Present Illness Initial Comments: 09/12/17 17:19 Mr. Foster is a 26 y/o M with a history of nephrolithiasis who presents with hematuria at approximately 12 pm today with last normal urination at 11am and lower abdomen and right scrotal pain. He describes the hematuria as serosanguineous without dysuria. The lower abdominal and right scrotal pain have been ongoing for four days. He states the lower abdominal pain as dull, 2/ 10 with fluctuations to 5/10 that increases with inhalation marijuana use with radiation bilaterally to low back. The right scrotal pain is dull 2/10 with increase in pain from the marijuana use. Denies the following: lower back pain, sexual activity (last activity 7 months ago), penile discharge (exudate), nausea and vomiting, and fevers. He endorses having a history of nephrolithiasis with last workup 01/2017. Pmhx: Nephrolithiasis Shx: 2006 hip surgery right side. Meds: None Allergies: None Fhx: Maternal [place] at 52. Paternal HTN. Social: Smokes marijuana daily for 13 years. Denies other recreational drug use. 09/12/17 17:24 Past History - Past Medical History Allergies/Adverse Reactions: Allergies Allergy/AdvReac Type Severity Reaction Status Date / Time No Known Allergies Allergy Verified 09/12/17 14:26 Home Medications: Ambulatory Orders Azithromycin 2,000 mg PO ONCE #4 tablet 04/02/17 Doxycycline Hyclate [Vibramycin] 100 mg PO BID #20 capsule 04/02/17 Ibuprofen [Motrin -] 600 mg PO TID PRN #21 tablet 09/12/17 Tamsulosin HCl [Flomax] 0.4 mg PO DAILY #14 cap.er.24h 09/12/17 COPD: No DVT: No Kidney Stones: Yes - Immunization History Immunization Up to Date: Yes - Suicide/Smoking/Psychosocial Hx Smoking History: Current every day smoker Have you smoked in the past 12 months: Yes Number of Cigarettes Smoked Daily: 2 If you are a former smoker, when did you quit?: 11/2014 Information on smoking cessation initiated: No 'Breaking Loose' booklet given: 01/25/17 Hx Alcohol Use: No Drug/Substance Use Hx: Yes Substance Use Type: None Hx Substance Use Treatment: No Review of Systems - Review of Systems Constitutional: No: Chills, Fever, Weakness HEENTM: No: Blurred Vision, Recent change in vision, Ear Pain, Nose Pain, Throat Pain Respiratory: No: Shortness of Breath, SOB with Exertion, Hemoptysis Cardiac (ROS): No: Chest Pain, Palpitations ABD/GI: No: Constipated, Diarrhea, Nausea, Rectal Bleeding, Vomiting, Tarry Stools : Yes: Hematuria Musculoskeletal: No: Back Pain Integumentary: No: Rash Neurological: No: Headache Endocrine: No: Unexplained Weight Gain *Physical Exam - Vital Signs Last Vital Signs Temp Pulse Resp BP Pulse Ox 99.3 F 84 20 146/85 99 09/12/17 14:26 09/12/17 14:26 09/12/17 14:26 09/12/17 14:09/12/17 14:26 - Physical Exam General Appearance: Yes: Nourished HEENT: positive: JUSTYNA Neck: negative: Lymphadenopathy (R), Lymphadenopathy (L) Respiratory/Chest: positive: Lungs Clear, Normal Breath Sounds Cardiovascular: positive: Regular Rhythm, Regular Rate, S1, S2. negative: Systolic Murmur Gastrointestinal/Abdominal: positive: Normal Bowel Sounds, Tender (RLQ and hypoepigastric. ) Male Genitalia: positive: normal genitalia. negative: testicular tenderness Musculoskeletal: positive: Normal Inspection. negative: CVA Tenderness Extremity: positive: Normal Inspection Integumentary: positive: Normal Color, Dry Neurologic: positive: Fully Oriented, Alert ED Treatment Course - LABORATORY CBC & Chemistry Diagram: 09/12/17 15:25 09/12/17 15:25 - ADDITIONAL ORDERS Additional order review: 09/12/17 15:25 RBC 5.52 MCV 81.7 MCHC 33.0 RDW 14.1 MPV 8.8 Neutrophils % 69.1 Lymphocytes % 20.5 Monocytes % 6.8 Eosinophils % 2.9 Basophils % 0.7 - RADIOLOGY Radiology Studies Ordered: Category Date Time Status SCROTUM AND CONTENTS US [US] Stat Ultrasound 09/12/17 15:27 Ordered - Medications Given in the ED: ED Medications Discontinued Medications Generic Name Dose Route Start Last Admin Trade Name Freq PRN Reason Stop Dose Admin Sodium Chloride 1,000 mls @ 1,000 mls/hr 09/12/17 15:21 09/12/17 15:25 Normal Saline - IV 09/12/17 16:20 1,000 mls/hr ASDIR STA Administration Ketorolac Tromethamine 30 mg 09/12/17 15:20 09/12/17 15:25 Toradol Injection - IM 09/12/17 15:21 30 mg ONCE ONE Administration Tamsulosin HCl 0.4 mg 09/12/17 15:22 09/12/17 15:25 Flomax - PO 09/12/17 15:23 0.4 mg ONCE ONE Administration Medical Decision Making - Medical Decision Making Mr. Foster is a 26 yo male with a history of nephrolithiasis presents to the ED with right flank pain with hematuria. Initial vitals: Initial Vital Signs Temp Pulse Resp BP Pulse Ox 99.3 F 84 20 146/85 99 09/12/17 14:26 09/12/17 14:26 09/12/17 14:26 09/12/17 14:26 09/12/17 14:26 Work up: The following was ordered: CBC, CMP, UA, urine culture, renal ultrasound. Given IVF hydration and toradol for pain relief and adequate hydration. Subsequently, WBC elevated mildly and blood found in urine. CT renal ordered. Renal US showed mild R hydronephrosis and scrotal US was within normal limits. CT showed 2 stones 4 mm and 4.5 mm in the prox and mid right ureter with hydro. Will follow up with Dr. Means. Laboratory Last Values WBC 10.7 K/mm3 (4.0-10.0) H 09/12/17 15:25 RBC 5.52 M/mm3 (4.00-5.60) 09/12/17 15:25 Hgb 14.9 GM/dL (11.7-16.9) 09/12/17 15:25 Hct 45.1 % (35.4-49) 09/12/17 15:25 MCV 81.7 fl (80-96) 09/12/17 15:25 MCH 27.0 pg (25.7-33.7) 09/12/17 15:25 MCHC 33.0 g/dl (32.0-35.9) 09/12/17 15:25 RDW 14.1 % (11.9-15.9) 09/12/17 15:25 Plt Count 271 K/MM3 (134-434) 09/12/17 15:25 MPV 8.8 fl (7.5-11.1) 09/12/17 15:25 Absolute Neuts (auto) 7.4 # 09/12/17 15:25 Neutrophils % 69.1 % (42.8-82.8) 09/12/17 15:25 Lymphocytes % 20.5 % (8-40) 09/12/17 15:25 Monocytes % 6.8 % (3.8-10.2) 09/12/17 15:25 Eosinophils % 2.9 % (0-4.5) 09/12/17 15:25 Basophils % 0.7 % (0-2.0) 09/12/17 15:25 Nucleated RBC % 0 % (0-0) 09/12/17 15:25 Sodium 141 mmol/L (136-145) 09/12/17 15:25 Potassium 4.7 mmol/L (3.5-5.1) 09/12/17 15:25 Chloride 105 mmol/L (98-107) 09/12/17 15:25 Carbon Dioxide 29 mmol/L (21-32) 09/12/17 15:25 Anion Gap 7 (8-16) L 09/12/17 15:25 BUN 8 mg/dL (7-18) 09/12/17 15:25 Creatinine 1.1 mg/dL (0.7-1.3) 09/12/17 15:25 Creat Clearance w eGFR > 60 (>60) 09/12/17 15:25 Random Glucose 97 mg/dL (74-106) 09/12/17 15:25 Calcium 8.9 mg/dL (8.5-10.1) 09/12/17 15:25 Total Bilirubin 0.5 mg/dL (0.2-1.0) 09/12/17 15:25 AST 27 U/L (15-37) D 09/12/17 15:25 ALT 37 U/L (12-78) 09/12/17 15:25 Alkaline Phosphatase 81 U/L (45-117) 09/12/17 15:25 Total Protein 8.1 g/dl (6.4-8.2) 09/12/17 15:25 Albumin 4.6 g/dl (3.4-5.0) 09/12/17 15:25 Urine Color Yellow 09/12/17 17:25 Urine Appearance Slcloudy 09/12/17 17:25 Urine pH 6.0 (5.0-8.0) 09/12/17 17:25 Ur Specific [place] 1.010 (1.001-1.035) 09/12/17 17:25 Urine Protein 1+ (NEGATIVE) H 09/12/17 17:25 Urine Glucose (UA) Negative (NEGATIVE) 09/12/17 17:25 Urine Ketones Negative (NEGATIVE) 09/12/17 17:25 Urine Blood 3+ (NEGATIVE) H 09/12/17 17:25 Urine Nitrite Negative (NEGATIVE) 09/12/17 17:25 Urine Bilirubin Negative (<2.0 mg/dL) 09/12/17 17:25 Urine Urobilinogen Negative mg/dL (0.2-1.0) 09/12/17 17:25 Ur Leukocyte Esterase Negative (NEGATIVE) 09/12/17 17:25 Urine WBC (Auto) 11 /hpf (3-5) 09/12/17 17:25 Urine RBC (Auto) 495 /hpf (0-3) 09/12/17 17:25 Urine Bacteria Few /hpf (NONE SEEN) 09/12/17 17:25 Urine Mucus Rare 09/12/17 17:25 Disposition: To home with follow up care with urology. *DC/Admit/Observation/Transfer Diagnosis at time of Disposition: Painful urination, Renal colic, Hydronephrosis, Hematuria - Discharge Dispostion Disposition: HOME Condition at time of disposition: Stable - Prescriptions Prescriptions: Ibuprofen [Motrin -] 600 mg PO TID PRN #21 tablet PRN Reason: Pain Tamsulosin HCl [Flomax] 0.4 mg PO DAILY #14 cap.er.24h - Referrals Referrals: Jagdish Means MD [Staff Physician] - - Patient Instructions Printed Discharge Instructions: Kidney Stones -- Adult Additional Instructions: Please call the urologist Thursday morning to arrange for an office visit. Please urinate through the strainer. Please take all medications as prescribed. Please return to the ED with any further concerns or complaints. - Post Discharge Activity
[2017-09-12 17:35] LABS: URINE APPEARANCE SLCLOUDY; URINE BILIRUBIN NEGATIVE (<2.0 mg/dL); URINE COLOR YELLOW; URINE GLUCOSE (UA) NEGATIVE (NEGATIVE); URINE KETONE NEGATIVE (NEGATIVE); URINE LEUK ESTERASE NEGATIVE (NEGATIVE); URINE NITRITE NEGATIVE (NEGATIVE); URINE UROBILINOGEN NEGATIVE mg/dL (0.2-1.0)
[2017-09-12 17:38] LABS: URINE PROTEIN 1+ (NEGATIVE)
[2017-09-12 17:40] LABS: URINE BACTERIA FEW /hpf (NONE SEEN); URINE MUCUS RARE
[2017-09-12 18:05] LABS: ALBUMIN 4.6 g/dl (3.4-5.0); ANION GAP 7 (8-16); BILIRUBIN,TOTAL 0.5 mg/dL (0.2-1.0); BLOOD UREA NITROGEN 8 mg/dL (7-18); CALCIUM 8.9 mg/dL (8.5-10.1); CHLORIDE 105 mmol/L (98-107); CO2 29 mmol/L (21-32); CREATININE 1.1 mg/dL (0.7-1.3); GLUCOSE,RANDOM 97 mg/dL (74-106); SGPT/ALT 37 U/L (12-78); SODIUM 141 mmol/L (136-145); TOT PROT 8.1 g/dl (6.4-8.2)
[2017-09-12 18:06] LABS: ALK PHOS 81 U/L (45-117)
[2017-09-12 18:07] LABS: POTASSIUM 4.7 mmol/L (3.5-5.1); SGOT/AST 27 U/L (15-37)
== END 2017-09-12 19:06 | disposition home or self-care (01) ==
LOC: JER 14:21
PROC: 3E0337Z Introduction of Electrolytic and Water Balance Substance into Peripheral Vein, Percutaneous Approach (ICD-10-PCS; principal; 2017-09-12)
PROC: 3E0233Z Introduction of Anti-inflammatory into Muscle, Percutaneous Approach (ICD-10-PCS; 2017-09-12)
DX: N13.2 Hydronephrosis with renal and ureteral calculous obstruction (principal); Z87.442 Personal history of urinary calculi; F17.210 Nicotine dependence, cigarettes, uncomplicated
CPT/HCPCS: 36415; 74176-TC; 76775-TC; 76870-TC; 80053; 81003; 81015; 85025; 87086; 96360; 96372; 99282-25; J7030

== ENCOUNTER 2018-03-26 13:43 | Emergency (ER) | payer SELFPAY ==
--- NOTE | 2018-03-26 13:59 | PDOC ---
Rapid Medical Evaluation Chief Complaint: Pain Time Seen by Provider: 03/26/18 13:56 Medical Evaluation: Allergies Allergy/AdvReac Type Severity Reaction Status Date / Time No Known Allergies Allergy Verified 03/26/18 13:56 03/26/18 13:57 I have performed a brief in-person evaluation of this patient. The patient presents with a chief complaint of:Lower abd pain x 1 month, w/ hematuria since yesterday. H/o renal stones, no surgeries in past, possible HTN , never on meds Pertinent physical exam findings:Tachy to 104 w/ elevated BP, well gera, no CVAT I have ordered the following:labs/ua The patient will proceed to the ED for further evaluation. Discharge Disposition - Diagnosis Abdominal pain Qualifiers: Abdominal location: lower abdomen, unspecified Qualified Code(s): R10.30 - Lower abdominal pain, unspecified - Referrals - Patient Instructions - Post Discharge Activity
[2018-03-26 14:00] VITALS: TEMP 98.3; BMI 30.7
[2018-03-26 14:28] LABS: BASO % 0.4 % (0-2.0); EOS % 5.2 % (0-4.5); HEMATOCRIT 45.5 % (35.4-49); HEMOGLOBIN 15.4 GM/dL (11.7-16.9); LYMPH % 27.1 % (8-40); MCH 27.9 pg (25.7-33.7); MCHC 33.8 g/dl (32.0-35.9); MEAN CELL VOLUME 82.5 fl (80-96); MEAN PLT VOLUME 8.5 fl (7.5-11.1); MONO % 10.7 % (3.8-10.2); NEUT % 56.6 % (42.8-82.8); PLATELET COUNT 246 K/MM3 (134-434); RBC 5.52 M/mm3 (4.00-5.60); RDW 14.6 % (11.9-15.9); WHITE BLOOD COUNT 7.9 K/mm3 (4.0-10.0)
[2018-03-26 14:29] LABS: URINE APPEARANCE CLEAR; URINE BILIRUBIN NEGATIVE (<2.0 mg/dL); URINE COLOR YELLOW; URINE GLUCOSE (UA) NEGATIVE (NEGATIVE); URINE KETONE NEGATIVE (NEGATIVE); URINE LEUK ESTERASE NEGATIVE (NEGATIVE); URINE NITRITE NEGATIVE (NEGATIVE); URINE PROTEIN 1+ (NEGATIVE)
[2018-03-26 14:33] LABS: URINE MUCUS FEW
--- NOTE | 2018-03-26 14:57 | PDOC ---
History of Present Illness - General Chief Complaint: Pain Stated Complaint: R/O KIDNEY STONES Time Seen by Provider: 03/26/18 13:56 History Source: Patient Exam Limitations: No Limitations - History of Present Illness Initial Comments: Patient is a 27 y/o M w/ PMHx nephrolithiasis p/w b/l flank/lower abdominal pain radiating to scrotum x 1 month, darkening urine x 1 day. Denies n/v/c/d, f/ c, CP or any other pain, SOB, dizziness, lightheadedness. States his presentation is identical to past episodes of kidney stones. States he did not follow up with urology referral from prior ED visit in October. Partially completed course of Flomax in October which provided relief. Is sexually active with his girlfriend who has been overseas since summer, abstinent since that time, does not use protection when sexually active. Denies dysuria, denies penile discharge. On presentation is hypertensive to 152/108 and tachycardic to 104. However, denies any pain at time of encounter. ROS otherwise negative throughout. 03/26/18 14:52 03/26/18 14:59 Past History - Travel Traveled outside of the country in the last 30 days: No Close contact w/someone who was outside of country & ill: No - Past Medical History Allergies/Adverse Reactions: Allergies Allergy/AdvReac Type Severity Reaction Status Date / Time No Known Allergies Allergy Verified 03/26/18 13:56 Home Medications: Ambulatory Orders Azithromycin [Zithromax] 2,000 mg PO ONCE #4 tablet 04/02/17 Doxycycline Hyclate [Vibramycin] 100 mg PO BID #20 capsule 04/02/17 Ibuprofen [Motrin -] 600 mg PO TID PRN #21 tablet 09/12/17 Tamsulosin HCl [Flomax] 0.4 mg PO DAILY #14 cap.er.24h 09/12/17 COPD: No DVT: No Kidney Stones: Yes - Immunization History Immunization Up to Date: Yes - Suicide/Smoking/Psychosocial Hx Smoking History: Current every day smoker Have you smoked in the past 12 months: Yes Number of Cigarettes Smoked Daily: 2 If you are a former smoker, when did you quit?: 11/2014 Information on smoking cessation initiated: No 'Breaking Loose' booklet given: 01/25/17 Hx Alcohol Use: No Drug/Substance Use Hx: Yes Substance Use Type: None, Cocaine (occasional, states last use was 1 month ago) , Marijuana (daily use) Hx Substance Use Treatment: No Review of Systems - Review of Systems Comments:: As per HPI 03/26/18 14:57 *Physical Exam - Vital Signs Last Vital Signs Temp Pulse Resp BP Pulse Ox 98.3 F 104 H 18 152/108 H 99 03/26/18 13:57 03/26/18 13:57 03/26/18 13:57 03/26/18 13:57 03/26/18 13:57 - Physical Exam Comments: Gen: A&Ox3, NAD HEENT: NC/AT, EOMI, PERRLA, MMM CV: tachycardic no m/r/g Resp: CTA b/l Abd: +bs, soft, NT, ND MSK: full ROM at all joints, no CVA tenderness Extremities: 2+ pulses, wwp : circumcised, no blood or discharge at meatus, no penile or scrotal tenderness, no appreciable inguinal hernia Neuro: magneto repairer, motor, sensory systems w/o focal deficit Psych: normal mood, normal affect Skin: warm, dry, normal turgor 03/26/18 14:57 Moderate Sedation - Procedure Monitoring Vital Signs: Procedure Monitoring Vital Signs Temperature 98.3 F 03/26/18 13:57 Pulse Rate 104 H 03/26/18 13:57 Respiratory Rate 18 03/26/18 13:57 Blood Pressure 152/108 H 03/26/18 13:57 O2 Sat by Pulse Oximetry (%) 99 03/26/18 13:57 ED Treatment Course - LABORATORY CBC & Chemistry Diagram: 03/26/18 14:14 03/26/18 14:14 - ADDITIONAL ORDERS Additional order review: Laboratory Results 03/26/18 03/26/18 14:15 14:14 WBC 7.9 RBC 5.52 Hgb 15.4 Hct 45.5 MCV 82.5 MCH 27.9 MCHC 33.8 RDW 14.6 Plt Count 246 MPV 8.5 Absolute Neuts (auto) 4.5 Neutrophils % 56.6 Lymphocytes % 27.1 D Monocytes % 10.7 H Eosinophils % 5.2 H Basophils % 0.4 Nucleated RBC % 0 Urine Color Yellow Urine Appearance Clear Urine pH 5.0 Ur Specific [place] 1.021 Urine Protein 1+ H Urine Glucose (UA) Negative Urine Ketones Negative Urine Blood Negative Urine Nitrite Negative Urine Bilirubin Negative Urine Urobilinogen 2.0 Ur Leukocyte Esterase Negative Urine WBC (Auto) 3 Urine RBC (Auto) <1 Urine Mucus Few 03/26/18 14:14 RBC 5.52 MCV 82.5 MCHC 33.8 RDW 14.6 MPV 8.5 Neutrophils % 56.6 Lymphocytes % 27.1 D Monocytes % 10.7 H Eosinophils % 5.2 H Basophils % 0.4 - RADIOLOGY Radiology Studies Ordered: Category Date Time Status KIDNEY / RENAL US [US] Stat Ultrasound 03/26/18 14:48 Ordered Medical Decision Making - Medical Decision Making Patient denies pain at time of encounter. UA is negative. No WBC elevation. Ordered renal US. 03/26/18 15:05 *DC/Admit/Observation/Transfer Diagnosis at time of Disposition: Nephrolithiasis Abdominal pain Qualifiers: Abdominal location: lower abdomen, unspecified Qualified Code(s): R10.30 - Lower abdominal pain, unspecified - Discharge Dispostion Disposition: HOME Condition at time of disposition: Stable - Referrals Referrals: Jagdish Means MD [Staff Physician] - 1 week - Patient Instructions Printed Discharge Instructions: Kidney Stones -- Adult - Post Discharge Activity
[2018-03-26 15:21] LABS: ALBUMIN 4.6 g/dl (3.4-5.0); ALK PHOS 79 U/L (45-117); ANION GAP 7 MMOL/L (8-16); BILIRUBIN,TOTAL 0.3 mg/dL (0.2-1); BLOOD UREA NITROGEN 9 mg/dL (7-18); CALCIUM 8.9 mg/dL (8.5-10.1); CHLORIDE 105 mmol/L (98-107); CO2 27 mmol/L (21-32); CREATININE 1.1 mg/dL (0.55-1.3); GLUCOSE,RANDOM 107 mg/dL (74-106); POTASSIUM 4.1 mmol/L (3.5-5.1); SGOT/AST 20 U/L (15-37); SGPT/ALT 43 U/L (13-61); SODIUM 140 mmol/L (136-145); TOT PROT 8.1 g/dl (6.4-8.2)
[2018-03-26 16:22] VITALS: BP 135/85; PULSE 89
--- NOTE | 2018-03-26 17:06 | PDOC ---
Attending Attestation - Resident Resident Name: Ken Nagy - ED Attending Attestation I have performed the following: I have examined & evaluated the patient, The case was reviewed & discussed with the resident, I agree w/resident's findings & plan, Exceptions are as noted - HPI HPI: 03/26/18 17:03 The patient is a 27 year old male, with a significant PMH of nephrolithiasis, who presents to the emergency department with 1 month of bilateral flank pain and 1 day of dark colored urine. The patient states his symptoms today feel similar to his prior presentations with kidney stones but pain is much less. Pt states he has no pain currently, but when he does have pain, it lasts for 1-2 seconds at a time and feels like a "pinch" in either flank. The patient states he received a referral to urology from his prior ED visit in September for kidney stones but did not follow up. The patient states he also partially completed a course of Flomax at that time. The patient denies any recent fevers or chills. The patient denies chest pain, shortness of breath, headache and dizziness. Denies nausea, vomit, diarrhea and constipation. Denies dysuria, frequency, and urgency. Allergies: NKA Surgical history: 2006 hip surgery right side Social history: Patient reports daily history of smoking. Reports the use of marijuana. Denies the use of alcohol. PCP: None reported. - Physicial Exam PE: 03/26/18 17:37 GENERAL: Awake, alert, and fully oriented, in no acute distress HEAD: No signs of trauma EYES: PERRLA, EOMI, sclera anicteric, conjunctiva clear ENT: Auricles normal inspection, hearing grossly normal, nares patent, oropharynx clear without exudates. Moist mucosa NECK: Normal ROM, supple, no lymphadenopathy, JVD, or masses LUNGS: Breath sounds equal, clear to auscultation bilaterally. No wheezes, and no crackles HEART: Regular rate and rhythm, normal S1 and S2, no murmurs, rubs or gallops ABDOMEN: Soft, nontender, normoactive bowel sounds. No guarding, no rebound. No masses : normal ext genitalia, no scrotal or penile ttp. Normal scrotal lie without masses, normal cremasteric reflex b/l EXTREMITIES: Normal range of motion, no edema. No cords, erythema, or tenderness NEUROLOGICAL: Normal speech, cranial nerves intact, normal strength and sensation b/l SKIN: Warm, Dry, normal turgor, no rashes or lesions noted. - Medical Decision Making 03/26/18 17:40 27yo M with hx renal colic presents to the ED with 1 month of intermittent b/l flank pain, none currently. Labs and UA wnl, with no blood in the urine, no evidence of infection. US of the kidney reveals nephrolithiasis with no hydronephosis to suggest acute renal colic. Pt also states pain lasts for 1-2 seconds and is pinching which is atypical of acute renal colic. Given duration of symptoms, lack of pain during ED stay, normal exam, labs and UA, and very well appearing pt, plan to DC pt with referral for urology. Pt expresses understanding of plan. I discussed the physical exam findings, ancillary test results and final diagnoses with the patient. I answered all of the patient's questions. The patient was satisfied with the care received and felt comfortable with the discharge plan and treatment plan. The patient will call their primary care physician within 24 hours to arrange follow-up and will return to the Emergency Department with any new, persistent or worsening symptoms.
== END 2018-03-26 16:26 | disposition home or self-care (01) ==
LOC: JER 13:43
DX: N20.0 Calculus of kidney (principal); Z87.442 Personal history of urinary calculi
CPT/HCPCS: 36415; 76775-TC; 80053; 81003; 81015; 85025; 87086; 87491; 87591; 99281-25

== ENCOUNTER 2021-07-27 17:47 | Emergency (ER) | payer OTHER ==
[2021-07-27 18:43] VITALS: BP 159/112; PULSE 109; TEMP 98.2; BMI 33.3
[2021-07-27] MEDS ORDERED: LOSARTAN POTASSIUM 50 MG TABLET PO ONE (20:23)
[2021-07-27] MEDS ORDERED: LOSARTAN POTASSIUM 50 MG TABLET ONE (20:37)
[2021-07-27 21:16] LABS: URINE APPEARANCE CLEAR; URINE BILIRUBIN NEGATIVE (NEGATIVE); URINE COLOR YELLOW; URINE GLUCOSE (UA) NEGATIVE (NEGATIVE); URINE KETONE NEGATIVE (NEGATIVE); URINE LEUK ESTERASE NEGATIVE (NEGATIVE); URINE NITRITE NEGATIVE (NEGATIVE); URINE PROTEIN NEGATIVE (NEGATIVE); URINE UROBILINOGEN 0.2 mg/dL (0.2-1.0)
== END 2021-07-27 21:00 | disposition home or self-care (01) ==
LOC: JERFT 17:47
DX: Z20.2 Contact with and (suspected) exposure to infections with a predominantly sexual mode of transmission (principal); I10 Essential (primary) hypertension
CPT/HCPCS: 36415; 81003; 87086; 87491; 87591; 99284-25

== ENCOUNTER 2022-12-11 11:04 | Emergency (ER) | payer OTHER ==
[2022-12-11 11:14] VITALS: BP 135/86; PULSE 75; RESP 18; TEMP 98; BMI 33.3
[2022-12-11] MEDS ORDERED: KETOROLAC TROMETHAMINE 30 MG/1 ML VIAL IVPUSH ONE (11:42)
[2022-12-11] MEDS ORDERED: KETOROLAC TROMETHAMINE 15 MG/ML VIAL ONE (12:01)
[2022-12-11 12:56] LABS: BASO % 1.3 % (0-2.0); EOS % 2.6 % (0-4.5); HEMATOCRIT 42.4 % (35.4-49); HEMOGLOBIN 14.4 GM/dL (11.7-16.9); LYMPH % 15.7 % (8-40); MCH 27.2 pg (25.7-33.7); MEAN CELL VOLUME 80.1 fl (80-96); MEAN PLT VOLUME 8.4 fl (7.5-11.1); MONO % 6.2 % (3.8-10.2); NEUT % 74.2 % (42.8-82.8); PLATELET COUNT 349 10^3/uL (134-434); RDW 14.8 % (11.9-15.9); WHITE BLOOD COUNT 11.3 K/mm3 (4.0-10.0)
[2022-12-11 13:00] LABS: EPI CELLS 3 /uL (0-25.1); HYALINE CASTS 0 /uL (0-3.1); PH,URINE 5.5 (5.0-8.0); URINE APPEARANCE CLEAR; URINE BACTERIA 5 /uL (0-1359); URINE BILIRUBIN NEGATIVE (NEGATIVE); URINE COLOR YELLOW; URINE GLUCOSE (UA) NEGATIVE (NEGATIVE); URINE KETONE TRACE (NEGATIVE); URINE LEUK ESTERASE TRACE (NEGATIVE); URINE NITRITE NEGATIVE (NEGATIVE); URINE PROTEIN NEGATIVE (NEGATIVE); URINE RBC 27 /uL (0-23.9); URINE UROBILINOGEN 0.2 mg/dL (0.2-1.0); URINE WBC 4 /uL (0-25.8)
[2022-12-11 13:23] LABS: YEAST NONE SEEN (NEGATIVE)
[2022-12-11 13:26] LABS: POTASSIUM 5.2 mmol/L (3.5-5.1)
[2022-12-11 13:28] LABS: ALBUMIN 4.6 g/dl (3.4-5.0); CALCIUM 9.6 mg/dL (8.5-10.1)
[2022-12-11 13:29] LABS: BLOOD UREA NITROGEN 11.4 mg/dL (7-18)
[2022-12-11 13:31] LABS: CREATININE 1.1 mg/dL (0.55-1.3)
[2022-12-11 13:33] LABS: BILIRUBIN,TOTAL 0.4 mg/dL (0.2-1)
== END 2022-12-11 15:47 | disposition home or self-care (01) ==
LOC: JER 11:04
PROC: 3E0333Z Introduction of Anti-inflammatory into Peripheral Vein, Percutaneous Approach (ICD-10-PCS; principal; 2022-12-11)
DX: R31.9 Hematuria, unspecified (principal); R10.30 Lower abdominal pain, unspecified
CPT/HCPCS: 36415; 74176-TC; 80053; 81003; 85025; 87086; 99284-25

== ENCOUNTER 2023-08-29 10:24 | Emergency (ER) | payer OTHER ==
[2023-08-29 10:34] VITALS: BP 130/88; PULSE 95; RESP 20; TEMP 98.6; BMI 26.6
[2023-08-29 11:45] LABS: BASO % 0.8 % (0-2.0); EOS % 5.7 % (0-4.5); HEMATOCRIT 38.5 % (35.4-49); HEMOGLOBIN 12.8 GM/dL (11.7-16.9); LYMPH % 24.7 % (8-40); MCH 27.4 pg (25.7-33.7); MCHC 33.3 g/dl (32.0-35.9); MEAN CELL VOLUME 82.3 fl (80-96); MEAN PLT VOLUME 7.9 fl (7.5-11.1); MONO % 7.8 % (3.8-10.2); PLATELET COUNT 259 10^3/uL (134-434); RBC 4.67 M/mm3 (4.00-5.60); RDW 14.9 % (11.9-15.9); WHITE BLOOD COUNT 7.5 K/mm3 (4.0-10.0)
[2023-08-29 12:08] LABS: POTASSIUM 4.4 mmol/L (3.5-5.1)
[2023-08-29 12:10] LABS: CALCIUM 8.9 mg/dL (8.5-10.1)
[2023-08-29 12:11] LABS: ALBUMIN 3.7 g/dl (3.4-5.0); BLOOD UREA NITROGEN 9.2 mg/dL (7-18)
[2023-08-29 12:16] LABS: BILIRUBIN,TOTAL 0.3 mg/dL (0.2-1); TOT PROT 6.7 g/dl (6.4-8.2)
== END 2023-08-29 13:53 | disposition home or self-care (01) ==
LOC: JER 10:24
DX: M79.641 Pain in right hand (principal); M79.642 Pain in left hand; M25.641 Stiffness of right hand, not elsewhere classified; M25.642 Stiffness of left hand, not elsewhere classified; R20.0 Anesthesia of skin; R20.2 Paresthesia of skin; M79.89 Other specified soft tissue disorders
CPT/HCPCS: 36415; 73110-TC-LT-FY; 73110-TC-RT-FY; 73130-TC-LT-FY; 73130-TC-RT-FY; 80053; 85025; 85651; 99284-25

== ENCOUNTER 2023-12-29 07:25 | Emergency (ER) | payer OTHER ==
[2023-12-29 07:35] VITALS: RESP 18; BMI 27.4
[2023-12-29 08:50] VITALS: BP 156/112; PULSE 83; TEMP 98.8
== END 2023-12-29 09:15 | disposition home or self-care (01) ==
LOC: JER 07:25
DX: F11.93 Opioid use, unspecified with withdrawal (principal); R51.9 Headache, unspecified; I10 Essential (primary) hypertension
CPT/HCPCS: 93005; 93010; 99283-25

== ENCOUNTER 2024-03-21 12:27 | Emergency (ER) | payer OTHER ==
[2024-03-21 12:49] VITALS: PULSE 95; BMI 28.3
[2024-03-21] MEDS ORDERED: ACETAMINOPHEN 325 MG TABLET (FP) ONE (14:11)
[2024-03-21] MEDS: ACETAMINOPHEN 500 MG TABLET (FP) PO ONE (14:28)
[2024-03-21] MEDS ORDERED: hydrALAZINE HCL 20 MG/ML VIAL ONE (14:30)
[2024-03-21 14:36] LABS: BASO % 0.9 % (0-2.0); EOS % 3.6 % (0-4.5); HEMATOCRIT 44.5 % (35.4-49); HEMOGLOBIN 14.8 GM/dL (11.7-16.9); LYMPH % 21.6 % (8-40); MCH 27.4 pg (25.7-33.7); MCHC 33.3 g/dl (32.0-35.9); MEAN CELL VOLUME 82.1 fl (80-96); MEAN PLT VOLUME 7.8 fl (7.5-11.1); NEUT % 66.9 % (42.8-82.8); PLATELET COUNT 301 10^3/uL (134-434); RBC 5.41 M/mm3 (4.00-5.60); RDW 14.6 % (11.9-15.9); URINE APPEARANCE CLEAR; URINE BILIRUBIN NEGATIVE (NEGATIVE); URINE COLOR YELLOW; URINE GLUCOSE (UA) NEGATIVE (NEGATIVE); URINE KETONE NEGATIVE (NEGATIVE); URINE LEUK ESTERASE NEGATIVE (NEGATIVE); URINE NITRITE NEGATIVE (NEGATIVE); URINE PROTEIN NEGATIVE (NEGATIVE); URINE UROBILINOGEN 0.2 mg/dL (0.2-1.0); WHITE BLOOD COUNT 10.9 K/mm3 (4.0-10.0)
[2024-03-21] MEDS: hydrALAZINE HCL 20 MG/ML VIAL IVPUSH ONE (14:36)
[2024-03-21 14:48] LABS: POTASSIUM 4.6 mmol/L (3.5-5.1)
[2024-03-21 14:51] LABS: ALBUMIN 4.6 g/dl (3.4-5.0); CALCIUM 9.5 mg/dL (8.5-10.1)
[2024-03-21 14:56] LABS: BILIRUBIN,TOTAL 0.3 mg/dL (0.2-1); TOT PROT 8.2 g/dl (6.4-8.2)
[2024-03-21 15:16] VITALS: BP 147/90; RESP 18; TEMP 98.5
[2024-03-21 15:45] LABS: HIV INTERPRETATION NEGATIVE (NEGATIVE)
== END 2024-03-21 15:36 | disposition home or self-care (01) ==
LOC: JER 12:27
PROC: 3E033GC Introduction of Other Therapeutic Substance into Peripheral Vein, Percutaneous Approach (ICD-10-PCS; principal; 2024-03-21)
DX: I16.1 Hypertensive emergency (principal); I10 Essential (primary) hypertension
CPT/HCPCS: 36415; 80053; 81003; 85025; 86803; 87086; 87389; 99284-25

== ENCOUNTER 2024-04-22 21:52 | Emergency (ER) | payer OTHER ==
[2024-04-22 21:57] VITALS: BP 155/100; PULSE 101; RESP 18; TEMP 98.2; BMI 28.3
[2024-04-22] MEDS ORDERED: KETOROLAC TROMETHAMINE 30 MG/1 ML VIAL ONE (22:24)
[2024-04-22] MEDS: KETOROLAC TROMETHAMINE 30 MG/1 ML VIAL IM ONE (22:28)
== END 2024-04-23 01:13 | disposition home or self-care (01) ==
LOC: JER 21:52 → JERFT 21:52 → JER 04-23 01:13
PROC: 2W3SX1Z Immobilization of Right Foot using Splint (ICD-10-PCS; principal; 2024-04-22)
PROC: 3E0233Z Introduction of Anti-inflammatory into Muscle, Percutaneous Approach (ICD-10-PCS; 2024-04-22)
DX: S92.331A Displaced fracture of third metatarsal bone, right foot, initial encounter for closed fracture (principal); W20.8XXA Other cause of strike by thrown, projected or falling object, initial encounter; Y99.0 Civilian activity done for income or pay
CPT/HCPCS: 73610-TC-RT-FY; 73630-TC-RT-FY; 73700-TC-RT; 99285-25